=== PATIENT | male | born 1970 | race Caucasian/White ===

== ENCOUNTER 2018-09-22 10:56 | Emergency (ER) | payer BC, OTHER ==
[~2018-09-22] VITALS: Ht 185.4 cm; Wt 90.7 kg
[2018-09-22 13:26] VITALS: BP 156/95
[2018-09-22] MEDS ORDERED: HYDROcodone-ACET 7.5/325MG TAB PO ONE (14:00)
== END 2018-09-22 14:00 | disposition home or self-care (01) ==
LOC: ER 11:03
DX: S46.001A Unspecified injury of muscle(s) and tendon(s) of the rotator cuff of right shoulder, initial encounter (principal); I10 Essential (primary) hypertension; Z88.0 Allergy status to penicillin; X50.9XXA Other and unspecified overexertion or strenuous movements or postures, initial encounter; Y93.89 Activity, other specified; Y99.8 Other external cause status; Y92.89 Other specified places as the place of occurrence of the external cause
CPT/HCPCS: 73030